=== PATIENT | female | born 1995 | race Caucasian/White ===

== ENCOUNTER 2022-10-29 15:04 | Emergency (ER) | payer OTHER, SELFPAY ==
[2022-10-29] VITALS (11 sets, daily range): BP systolic 101–114; BP diastolic 58–80; PULSE 61–94; RESP 16–38; TEMP 36.7–36.9; O2SAT 95–100
--- NOTE | ~2022-10-29 | US_ITS ---
EXAMINATION: US OB follow up DATE: 10/29/2022 18:55 INDICATION: Abdominal pain. Uncertain dates. TECHNIQUE: Real-time ultrasound of the pelvis was performed. COMPARISON: None. FINDINGS: There is a single living fetus in variable presentation. The placenta is fundal and posterior. heart rate is 150 beats per minute (bpm). The amniotic fluid volume is subjectively normal. The cerv ical length is 4.0 cm on transabdominal images, which is normal. The following biometric data were obtained: Biparietal diameter (BPD): 4.1 cm; head circumference (HC): 16.0 cm; abdominal circumference (AC): 12 .8 cm; femur length (FL): 2.8 cm. These measurements are concordant. Estimated weight is 243 g +/- 36 g. As single measurements, these parameters are each equal to the following estimated gestational ages: BPD: 18 weeks 4 days. HC: 18 weeks 6 days. AC: 18 weeks 3 days. FL: 18 weeks 4 days. estimated gestational age based solely on measurements from this exam is 18 weeks 4 days +/- 1 weeks 2 days. IMPRESSION: 1. Single living fetus in variable presentation. 2. Estimated date of delivery of 03/28/2023. Reviewed, dictated and finalized at location E.
[2022-10-29 18:00] LABS: Appearance Urine Turbid (Clear); Bacteria Urine 4+ /hpf; Bilirubin Urine 1+ (Negative); Blood Urine Trace (Negative); Color Urine Dark Yellow (Yellow); Glucose Urine UA Negative (Negative); Ketones Urine 3+ mg/dL (Negative); Leukocyte Esterase Ur 3+ LEU/UL (Negative); Need Manual Microscopic Reviewed; Nitrate Urine Positive (Negative); Non Pathogenic Casts >20; Protein Urine 2+ mg/dL (Negative); Specific Grav Ur 1.029 (1.001-1.035); Squamous Epithelial Cell Urine Many /hpf (Few); WBC Urine >100 /hpf
[2022-10-29 18:01] LABS: Add Urine Microscopic? YES
[2022-10-29 18:29] LABS: Basophils Percent Auto 0.2 % (0.2-1.2); Hematocrit 39.7 % (37.0-47.0); Hemoglobin 12.5 g/dL (12.0-15.0); Immature Granulocyte Absolute 0.03 K/mm3 (0.00-0.031); Immature Granulocyte Percent A 0.3 % (0-0.5); Immature Platelet Fraction Pct 6.4 % (0.9-11.2); Lymphocytes Absolute Auto 1.88 K/mm3 (0.9-3.2); Lymphocytes Percent Auto 21.4 % (18.3-44.2); Mean Corpuscular HGB Conc 31.5 g/dl (32-36); Mean Corpuscular Hemoglobin 29.6 pg (26-34); Mean Corpuscular Volume 93.9 fl (80-100); Monocytes Absolute Auto 0.5 K/mm3 (0.1-0.6); Monocytes Percent Auto 5.7 % (2.6-8.5); Neutrophils Absolute Auto 6.4 K/mm3 (1.3-6.7); Neutrophils Percent Auto 72.4 % (45.5-73.1); Red Blood Count 4.23 M/mm3 (4.2-5.4); Red Cell Distribution Width 14.2 % (11.5-14.5); White Blood Count 8.8 K/mm3 (4.5-10.0)
[2022-10-29 18:47] LABS: Platelet Estimate Adequate (Adequate)
[2022-10-29 18:48] LABS: Hypochromasia 1+ (NORMAL); Schistocytes None Seen (NORMAL)
--- NOTE | 2022-10-29 18:58 | ED.GENADULT ---
HPI - General Adult General Chief complaint: Unspecified Stated complaint: Detoxing from fentanyl. preg Time Seen by Provider: 10/29/22 18:40 Source: patient Limitations: no limitations History of Present Illness HPI narrative: 26 years old white female went to [facility] days last fentanyl use 5 days ago. Came to the emergency room with the police man who is telling me that patient did not eat or drink over the last 48 hours Patient tested positive for 2 days ago. Patient does not remember her last menstrual period. She denies any abdominal pain, fever, chills, vomiting, or nausea. Patient is telling me that she is in withdrawal from fentanyl right now, and also she is dehydrated. But does not have any specific symptoms. Patient is 4, para 1, 3 Related Data Allergies Allergy/AdvReac Type Severity Reaction Status Date / Time No Known Allergies Allergy Verified 10/29/22 15:50 Review of Systems Review of Systems: All systems reviewed & are unremarkable except as noted in HPI and below Exam Narrative: General appearance: Well-developed, well-nourished, poor hygiene, does not look in pain or distress laying comfortably in bed Skin: Normal color Head: Normocephalic, nontraumatic Eyes: Clear conjunctiva ENT: Oropharynx normal, ears normal, nose normal Neck: Supple, nontender Chest and respiratory: Airway patent, no respiratory distress, no accessory muscle use Heart: Regular rate/rhythm Abdomen: Soft, nontender, no organomegaly, quiet bowel sounds Vascular: Normal peripheral pulses, normal capillary refill. Musculoskeletal: Normal range of motion, nontender back Neurologic: Alert and oriented ?3, PIPELINE SYSTEMS OPERATOR is normal as tested, no gross motor deficit Course Reevaluation(s) Reevaluation #1: Feeling much better compared to on arrival to the emergency room after having IV fluid. Date: 10/29/22 Time: 21:09 Vital Signs Vital signs: Vital Signs Temperature 36.7 C 10/29/22 15:26 Pulse Rate 94 10/29/22 15:26 Respiratory Rate 16 10/29/22 15:26 Blood Pressure 112/80 10/29/22 15:26 Pulse Oximetry 100 10/29/22 15:26 Oxygen Delivery Room Air 10/29/22 15:26 Temperature 36.9 C 10/29/22 17:25 Pulse Rate 74 10/29/22 19:37 Respiratory Rate 28 H 10/29/22 19:37 Blood Pressure 101/58 L 10/29/22 19:37 Pulse Oximetry 100 10/29/22 19:37 Oxygen Delivery Room Air 10/29/22 15:26 Medical Decision Making MDM Narrative Medical decision making narrative: Patient came from the [facility], last fentanyl use 5 days ago, reporting that she have fentanyl withdrawal and dehydration. Patient reports not eating or drinking well over the last 48 hours. Found to be 2 days ago. Physical examination showed stable vital signs indicating no signs of dehydration or fentanyl withdrawal. Patient very comfortable laying down in bed not in any pain or distress. Differential diagnosis related symptoms, electrolyte imbalance, dehydration, depression secondary to getting caught and going to the [facility] 5 days ago. Work-up today include CBC, CMP, urine analysis, pelvic ultrasound, beta-hCG showed slight elevation of liver enzymes AST 94, ALT 110, beta-hCG 22,577 urine analysis came back positive for infection. Patient received 1 L of normal saline IV, 4 mg of Zofran IV, ceftriaxone 1 g IV for urinary tract infection. Pelvic ultrasound showed intrauterine over 18 weeks. Patient symptoms high likely is multifactorial secondary to depression, off fentanyl for the last 5 days, and . Patient is hemodynamically stable to go back to the [facility] on amoxicillin 875 mg twice daily for 10 days. Differential Di
[2022-10-29] MEDS: SODIUM CHLORIDE 0.9% IV 1,000 ML 999 ML IV CONT (19:44)
[2022-10-29] MEDS: ONDANSETRON INJ 4 MG/2 ML VIAL IV PUSH (19:44)
[2022-10-29 19:58] LABS: Alanine Aminotransferase 110 U/L (6-35); Albumin Level 4.1 g/dL (3.5-5.1); Alkaline Phosphatase 91 U/L (38-126); Anion Gap 11 mmol/L (8-16); Aspartate Amino Transferase 94 U/L (14-36); Bilirubin,Total 1.2 mg/dL (0.2-1.3); Blood Urea Nitrogen 11 mg/dL (7-17); Calcium 8.7 mg/dL (8.4-10.2); Carbon Dioxide 20 mmol/L (22-30); Chloride 103 mmol/L (98-107); Estimated CRCL calculation 130 ml/min; Estimated Glomerular Filt Rate > 60; Glucose 77 mg/dL (65-110); Lipase 38 U/L (23-300); Sodium 134 mmol/L (137-145)
[2022-10-29 20:17] LABS: Beta HCG Quantitative > 15000.00 mIU/ML
== END 2022-10-29 21:20 ==
PROVIDERS: Physician Assistant; Emergency Provider Emergency Medicine
DX: O23.42 Unspecified infection of urinary tract in pregnancy, second trimester (principal); N39.0 Urinary tract infection, site not specified; O99.342 Other mental disorders complicating pregnancy, second trimester; F32.A Depression, unspecified; Z3A.18 18 weeks gestation of pregnancy
CPT/HCPCS: 36415; 76816; 80053; 81001; 81025; 83690; 84702; 85025; 85055; 87086; 87147; 87181; 87186; 96365; 96375; 99284; J0696; J2405; J7030

== ENCOUNTER 2024-08-02 17:38 | Emergency (ER) | payer OTHER, MEDICAID, SELFPAY ==
--- OUTSIDE RECORDS SUMMARY | 2024-08-02 17:41 | XMS_ITS ---
Author Organization [facility] Address [address] [place] [address] Care Team Providers Care Occupational Therapy Specialist Name Role Phone Lynda Graham Primary Care Provider YonatanKait montes Unavailable [phone] Allergies No Known Allergies Results Component Value Reference Range Notes 12 Panel Urine Drug Screen Reviewed date:06/14/2024 05:17:47 PM Interpretation: Performing Lab: Notes/Report: THC neg PRICILLA neg MOP (OPI) neg AMP neg MET neg BAR neg BZO neg MDMA neg MTD neg OXY neg PCP neg BUP POS REASON FOR VISIT MAT F/U Medications Medication SIG (Take, Route, Fr equency, Duration) Notes Start Date End Date Status Suboxone 8-2 MG 1 film AM and 0.5 fi lm PM under the tongue and allow to dissolve Sublingual twice daily 06/02/2024 Active Naloxone HCl 4 MG/0.1ML as directed Nasally 2023 Active Social History Tobacco Use: Social History Observation Description Date Details (start date - stop date) Light tobacco s moker NA - NA Tobacco Control (Standard) Question Answer Notes Tobacco use: Light tobacco smoker Additional Findings: Tobacco user Moderate cigar ette smoker (10-19 cigs/day) Problems Problem Type SNOMED Code ICD Code Onset Dates Problem Status W/U Status Risk Notes Problem Overweight (208932325) Overweight (BMI 25.0-29.9) (E66.3) Active confirmed Problem Tobacco use (977009337) Tobacco use disorder (F17.200) Active confirmed Vital Signs Weight 137.5 lbs 06/02/2024 Height 61.75 in 06/02/2024 BMI 25.35 kg/m2 06/02/2024 Blood pressure systolic 100 mm Hg 06/02/19 25 Blood pressure diastolic 64 mm Hg 025 Heart Rate 78 /min 06/02/2024 Oximetry 99 % 06/02/2024 Temperature 98.0 degrees Fahrenheit 06/02/19 25 Respiratory Rate 16 /min 06/02/2024 Encounters Encounter Location Date Provider Diagnosis [facility] [address] [place] [address] 06/02/2024 Kait Durbin Opioid use disorder F11.99 ; Overweight (BMI 25.0-29.9) E66.3 and Tobacco use disorder F17.200 Assessments Encounter Date Diagnosis (ICD Code) Assessment Notes Treatment Notes Treatment Clinical Notes Section Notes 06/02/2024 Opioid use disorder (ICD-10 - F11.99) 06/02/2024 Overweight (BMI 25.0-29.9) (ICD-10 - E66.3) 06/02/2024 Tobacco use disorder (ICD-10 - F17.200) 06/02/2024 Other Discussed medication side effects, adverse effects, risks, benefits, as well as interactions. Encouraged non-use of opioids. Has naloxone. Recommended participation in recovery groups and/or counseling services. May contact office with questions or concerns. Plan Of Treatment Medication Medication Name Sig Start Date Stop Date Notes Suboxone 8-2 MG 1 film AM and 0.5 fi lm PM under the tongue and allow to dissolve Sublingual twice daily 06/02/2024 Treatment Notes Assessment Notes Other Discussed medication side effects, adverse effects, risks, benefits, as well as interactions. Encouraged non-use of opioids. Has naloxone. Recommended participation in recovery groups and/or counseling services. May contact office with questions or concerns. Next Appt Details Follow Up: 4 Weeks, Reason: MAR f/u Provider Name:Kait mills, 08/03/2024 11:40:00 AM, [address], [place], [address], Progress Notes * Tamara HURLEY DDOB: [birth year] (28 yo F)Acc No.[id number]:06/02/2024 Patient: Tamara BORJA Provider: Alena Durbin, MSN, TOY DEPARTMENT MANAGER, MEMBER OF TECHNICAL STAFF-C :1995 A ge:28 Y S ex:Female Date:06/02/2024 Address:[address] [place], [place] [id number] Pcp:Lynda Graham Check In:08:29 AM CHANGE MANAGEMENT CONSULTANT Subjective: * Chief Complaints: * M AT F/U * HPI: P reventative Health and Wellness follow-up: Action Plans for Clinical Quality Measures: A dult BMI and follow-up: O ther (see notes). BMI nutrition discussed C ervical Cancer Screening: D iscussed need for cervical cancer screening. Referred to [facility] for same day scheduling. T obacco Screening and Cessation: O ther (see notes). Tobacco Cessation reviewed . C SSRS Interpretation and Follow Up Plan: CSSRS Interpretation and Follow Up Plan C SSRS Screen documented using SF Y es R isk Disposition from SF L ow - No Follow Up Plan Required F ollow Up Plan N o Follow Up Plan required at this time. S creening: Jefferson Suicide Severity Rating Scale (LF) 1 . Wish to be : Have you wished you were or wished you could go to sleep and not wake up? N o 2 . Suicidal Thoughts: Have you actually had any thoughts of killing yourself? N o 6 . Suicide Behavior Question: Have you ever done anything,started to do anything, or prepared to end your life? N o I nterpretation: L ow Risk I nterim History: Emergency room visit N o. Was hospitalized N o. D epression Screening: PHQ-9 L ittle interest or pleasure in doing things?Not at all F eeling down, depressed, or hopeless N ot at all T rouble falling or staying asleep, or sleeping too much N ot at all F eeling tired or having little energy N ot at all P oor appetite or overeating N ot at all F eeling bad about yourself or that you are a failure, or have let yourself or your family down N ot at all T rouble concentrating on things, such as reading the newspaper or watching television N ot at all M oving or speaking so slowly that other people could have noticed; or the opposite, being so fidgety or restless that you have been moving around a lot more than usual N ot at all T houghts that you would be better off or of hurting yourself in some way N ot at all T otal Score 0 M AR follow-up: Tamara presents for MAR f/u for treatment of OUD. Last appointment on 03/21/2024, reports on most days only taking 1 film daily and had enough buprenorphine to make it until appointment today. No use of opioids or cravings. Medication Monitoring and Risk Mitigation U p-to-date on ASAM recommended lab testing??No P rescribed a buprenorphine product? Y es H as patient had a buprenorphine and metabolite lab ordered/collected? Y es (see notes for date of last metabolite testing) D ate of last buprenorphine and metabolite?03/21/2024 P rescription Drug Monitoring Program Review?Yes. No concerns at this time. P juan to address any concerns identified: N o concerns identified. Will continue treatment plan as is. Cravings, Setbacks, Substance use, and Stressors C ravings since last visit: N o. Patient denies cravings since last visit. S etbacks since last visit? N o, patient denies setbacks since last visit. M isuse of substances since last visit: N o, patient denies. S tressors N o, patient denies stressors at this time. Withdrawal and Intoxication Symptoms I ntoxication Symptoms: N o signs of intoxication are present during visit. W ithdrawal Symptoms: N o withdrawal signs are present during visit. Mental Health, Support System, and Social Determinants M ental Health Status S table. S upport Systems Include: P ersonal support system (see notes). C ourt System Involvement? N o H ousing Stability: S table and safe housing. 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 R eferrals needed: N o referrals needed at this time. Recommended Wellness and Prevention Follow-up R ecommended Wellness and Prevention reviewed:?Yes. No additional orders/actions needed at this time. Other concerns: O ther Concerns? N o. N arcan need N o. Patient already has Narcan. * ROS: B asic ROS: Denies C hills. D enies S weats. D enies C onstipation. D enies S uicidal Thoughts. * Medical History: * Surgical History: N o Surgical History documented. * Hospitalization/Major Diagno stic Procedure: N o Hospitalization History. * Family History: F ather: , diagnosed with Other specified conditions influencing health status. M other: . 1 brother(s) - healthy. 2 son(s) . . mother pass away of an overdose three years ago. * Social History: P rimary Social History: L iving Arrangement L iving Arrangement: H omeless I s this a supportive environment? 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 T obacco Use: T obacco Control (Standard) T obacco use: L ight tobacco smoker A dditional Findings: Tobacco user M oderate cigarette smoker (10-19 cigs/day) M iscellaneous: M ethod of learning P referred method of learning: D emonstration * Medications: T akingNaloxone HCl 4 MG/0.1ML Liquid as directed Nasally Suboxone 8-2 MG Film 1 film AM and 0.5 film PM under the tongue and allow to dissolve Sublingual twice daily Medication List reviewed and reconciled with the patientTaking Naloxone HCl 4 MG/0.1ML Liquid as directed Nasally Taking Suboxone 8-2 MG Film 1 film AM and 0.5 film PM under the tongue and allow to dissolve Sublingual twice daily Medication List reviewed and reconciled with the patient * Allergies: N .K.D.A.no[Allergies Verified] Objective: * Vitals: I nitials: LL, Wt:137.5, Ht: 61.75, BMI:25.35, BP:100/64, HR:78, Oxygen sat %:99, Temp:98.0, RR:16, LMP: 04/2024, Pain scale:0. * Examination: G eneral Examination: GENERAL APPEARANCE: i n no acute distress. PSYCH: s peech clear, alert, oriented x4, judgement and insight good, thought process logical, goal directed. Assessment: * Assessment: 1. O verweight (BMI 25.0-29.9) - E66.3 2 . O pioid use disorder - F11.99 (Primary) 3 . T obacco use disorder - F17.200 Plan: * Treatment: Value Reference Range T HC neg * C OC neg * M OP (OPI) neg * A MP neg * M ET neg * B AR neg * B ZO neg * M DMA neg * M TD neg * O XY neg * P CP neg * B UP POS * Rita Arguelles 06/02/2024 1 0:11:57 AM CHANGE MANAGEMENT CONSULTANT > Specimen collected per [facility] specificationsThis lab was reviewed by Rita Arguelles on 06/14/2024 at 17:17 PM CHANGE MANAGEMENT CONSULTANT 2.?Others? Notes: Discussed medication side effects, adverse effects, risks, benefits, as well as interactions. Encouraged non-use of opioids. Has naloxone. Recommended participation in recovery groups and/or counseling services. May contact office with questions or concerns.?? * Recommended Wellness and Pre vention Guidelines: * S tatus A lert L ast Done N ext Due A ction Taken N ONCOMPLIANT C ervical cancer screening - 0 06/02/2024 - * Procedure Codes: 3 008F BODY MASS INDEX [id number] MEDICAL NUTRITION, INDIV, [id number] BEHAV CHNG SMOKING 3-10 [id number] SELF-MGMT EDUC & TRAIN, 1 [id number] SPECIMEN HANDLING * Preventive Medicine: Counseling: C are goal follow-up plan: BMI management provided Y es Above Normal BMI Follow-up L ifestyle education regarding diet S MOKING: Patient counselled on the dangers of tobacco use and urged to quit. . * Follow Up: 4 Weeks (Reason: JUN f/u) * Care Plan Details* * GE MANAGEMENT CONSULTANT Sign off status: Completed true * Provider: Alena Durbin, MSN, TOY DEPARTMENT MANAGER, MEMBER OF TECHNICAL STAFF-C Date: 0 06/02/2024 Generated for Celeste giordano/Fallon/Loveitting on: 0 08/02/2024 05:41 PM CDT History and Physical Notes * HPI (History of Present Illness) Category Sub-Category Detail Notes Category Not es Interim History Was hospitalized No Emergency room visit No Depression Screening PHQ-9 Little inte rest or pleasure in doing things: Not at all Feeling down, depressed, or hopeless: No t at all Trouble falling or staying asleep, or sl eeping too much: Not at all Feeling tired or having little energy: N ot at all Poor appetite or overeating: Not at all Feeling bad about yourself o r that you are a failure, or have let yourself or your family down: Not at all Trouble concentrating on thi ngs, such as reading the newspaper or watching television: Not at all Moving or speaking so slowly that other people could have noticed; or the opposite, being so fidgety or restless that you have been moving around a lot more than usual: Not at all Thoughts that you would be b [place]go off or of hurting yourself in some way: Not at all Total Score: 0 Screening Jefferson Suicide Sev erity Rating Scale (LF) 1. Wish to be : Have you wished you were or wished you could go to sleep and not wake up?: No 2. Suicidal Thoughts: Have you actually had any thoughts of killing yourself?: No 6. Suicide Behavior Question: Have you ever done anything,started to do anything, or prepared to end your life?: No Interpretation:: Low Risk MAR follow-up Medication Monitorin g and Risk Mitigation Up-to-date on ASAM recommended lab testing?: No Prescribed a buprenorphine product?: Yes Has patient had a buprenorphine and metabolite lab ordered/collected?: Yes (see notes for date of last metabolite testing) Date of last buprenorphine and metabolite: 03/21/2024 Prescription Drug Monitoring Program Rev iew: Yes. No concerns at this time. Plan to address any concerns identified:: No concerns identified. Will continue treatment plan as is. Cravings, Setbacks, Substanc e use, and Stressors Cravings since last visit:: No. Patient denies cravings since last visit. Setbacks since last visit?: No, patient denies setbacks since last visit. Misuse of substances since last visit:: No, patient denies. Stressors: No, patient denies stressors at this time. Withdrawal and Intoxication Symptoms Int oxication Symptoms:: No signs of intoxication are present during visit. Withdrawal Symptoms:: No withdrawal sign s are present during visit. Mental Health, Support Syste m, and Social Determinants Mental Health Status: Stable. Support Systems Include:: Personal suppo rt system (see notes). Court System Involvement?: No Housing Stability:: Stable and safe hous ing. 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 Referrals needed:: No referrals needed a t this time. Recommended Wellness and Pre vention Follow-up Recommended Wellness and Prevention reviewed:: Yes. No additional orders/actions needed at this time. Other concerns: Other Concerns?: No. Narcan need: No. Patient already has Alfa can. Preventative Health and Wellness follow-up Action Plans for Clinical Quality Measures: Adult BMI and follow-up:: Other (see notes). BMI nutrition discussed . Cervical Cancer Screening:: Discussed need for cervical cancer screening. Referred to [facility] for same day scheduling. Tobacco Screening and Cessation:: Other (see notes). Tobacco Cessation reviewed CSSRS Interpretation and Follow Up Plan CSSRS Interpretation and Follow Up Plan CSSRS Screen documented using SF: Yes Risk Disposition from SF: Low - No Follo w Up Plan Required Follow Up Plan: No Follow Up Plan requir ed at this time. Examination Category Sub-Category Detail Notes Category Not es General Examination GENERAL APPEARANCE: in no acute di stress PSYCH: speech clear, alert, oriented x4, judgement and insight good, thought process logical, goal directed
--- OUTSIDE RECORDS SUMMARY | 2024-08-02 17:41 | XMS_ITS ---
Author Organization [facility] Address [address] [place] [address] Care Team Providers Care Remote Computer Terminal Operator Name Role Phone Lynda Graham Primary Care Provider [phone] Kait Durbin [phone] REASON FOR VISIT F/U From Lynda Encounters Encounter Location Date Provider Diagnosis [facility] [address] [place] [address] 05/24/2024 Kait Durbin Plan Of Treatment Next Appt Details Provider Name:Kait mills, 08/03/2024 11:40:00 AM, [address], [place], [address], Progress Notes * Tamara HURLEY DDOB: 6 (28 yo F)Acc No.[id number]:05/24/2024 UNLOCKED PROGRESS NOTE Patient: Radha MONTGOMERY Tamara Pham Provider: Alena Durbin, MSN, GANG RIDER, MANAGER STERILE PROCESSING-C :1995 A ge:28 Y S ex:Female Date:05/24/2024 Address:[address] [address] , [facility] Pcp:Lynda Graham Subjective: * Chief Complaints: * 1 . F/U From Lynda. * Medical History: Objective: * Vitals: Assessment: Plan: * Treatment: * Care Plan Details* * Electronic signature of Viktoriya Durbin APRN, [id number] on 08/02/2024 at 05:40 PM CDT Sign off status: Pending * Provider: Alena Durbin, MSN, GANG RIDER, MANAGER STERILE PROCESSING-C Date: 0 05/24/2024 Generated for Celeste giordano/Fallon/Martha on: 0 08/02/2024 05:40 PM CDT
--- OUTSIDE RECORDS SUMMARY | 2024-08-02 17:41 | XMS_ITS | Patient Health Record ---
Author Organization Formerly [facility], 1928–1983 Address [address] [place] [address] Care Team Providers Care Application Security Consultant Name Role Phone Lynda Graham Primary Care Provider [phone] Kait Durbin Unavailable [phone] Betsey Rosas Unavailable [phone] Sera Velarde Unavailable [phone] Allergies No Known Allergies Results Component Value Reference Range Notes 12 Panel Urine Drug Screen Reviewed date:06/14/2024 05:17:47 PM Interpretation: Performing Lab: Notes/Report: THC neg PRICILLA neg MOP (OPI) neg AMP neg MET neg BAR neg BZO neg MDMA neg MTD neg OXY neg PCP neg BUP POS 12 Panel Urine Drug Screen Reviewed date:03/22/2024 11:55:51 AM Interpretation: Performing Lab: Notes/Report: THC neg PRICILLA neg MOP (OPI) neg AMP neg MET neg BAR neg BZO neg MDMA neg MTD neg OXY neg PCP neg BUP POS Buprenorphine and Metabolite (Urine test) Reviewed date:03/28/2024 10:34:34 AM Interpretation: Performing Lab:[facility], [address] [employer], [facility], Phone - [phone], Director - PhDAbudu Notes/Report: Clinical Information:CCU:[id number] LM Buprenorphine Positive Confirmation p erformed by Mass Spectrometry Buprenorphine Positive Buprenorphine Conf, MS, UR 126 Cutoff=10 ng/m L Norbuprenorphine Positive [place]buprenorphine [place], UR 1224 Cutoff=10 n g/mL Test, Urine Reviewed date:02/08/2024 05:58:00 PM Interpretation: Performing Lab: Notes/Report: Test, Urine NEG Negative - Negative 12 Panel Urine Drug Screen Reviewed date:02/08/2024 05:58:08 PM Interpretation: Performing Lab: Notes/Report: THC neg PRICILLA neg MOP (OPI) neg AMP neg MET neg BAR neg BZO neg MDMA neg MTD neg OXY neg PCP neg BUP POS 12 Panel Urine Drug Screen Reviewed date:07/06/2024 09:10:14 AM Interpretation: Performing Lab: Notes/Report: THC neg PRICILLA neg MOP (OPI) neg AMP neg MET neg BAR negn BZO neg MDMA neg MTD neg OXY neg PCP neg BUP Positive 12 Panel Urine Drug Screen Reviewed date:02/22/2024 04:33:10 PM Interpretation: Performing Lab: Notes/Report: THC neg PRICILLA neg MOP (OPI) neg AMP neg MET neg BAR neg BZO neg MDMA neg MTD neg OXY neg PCP neg BUP POS 12 Panel Urine Drug Screen Reviewed date:02/16/2024 05:08:11 PM Interpretation: Performing Lab: Notes/Report: THC neg PRICILLA neg MOP (OPI) neg AMP neg MET neg BAR neg BZO neg MDMA neg MTD neg OXY neg PCP neg BUP POS Reason For Referral No Information Medications Medication SIG (Take, Route, Fr equency, Duration) Notes Start Date End Date Status Naloxone HCl 4 MG/0.1ML as directed Nasally 2023 Active Suboxone 8-2 MG 1 film AM and 0.5 fi lm PM under the tongue and allow to dissolve Sublingual twice daily 07/05/2024 Active Social History Tobacco Use: Social History Observation Description Date Details (start date - stop date) Current Smoker NA - NA PRAPARE Question Answer Notes Date Completed/Updated: 02/08/2024 What is your current housing situation? I do not have housing (staying with others, in a hotel, in a long-term, living outside on the street, on a beach, or in a park) [place] house-house of [place]arshal Are you worried about losing your housing? Yes What is the highest level of school that you have finished? 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 Check all that apply I choose not to answer this question Has lack of transportation k ept you from medical appointments, meetings, work or from getting things needed for daily living? No How often do you see or talk to people that you care about and feel close to? (For example: talking to friends on the phone, visiting friends or family, going to yazidism or club meetings) 3 to 5 times a week Aunt and brother primary support system How stressed are you? Stress is when someone feels tense, nervous, anxious, or can\t sleep at night because their mind is troubled Somewhat In the past year have you sp ent more than 2 nights in a row in a custodial, [place] health care facility, snf center, or juvenile correctional facility? Yes Do you feel physically and emotionally safe where you currently live? Yes In the past year, have you b een afraid of your partner or ex-partner? I choose not to answer this question Are you a refugee? No What country are you from? [facility] PRAPARE Score: 0 Tobacco Control (Standard) Question Answer Notes Tobacco use: Current smoker Problems Problem Type SNOMED Code ICD Code Onset Dates Problem Status W/U Status Risk Notes Problem Tobacco user (716793519) Nicotine dependence, unspecified, uncomplicated (F17.200) Active confirmed Problem Overweight (996855538) Overweight (BMI 25.0-29.9) (E66.3) Active confirmed Problem Tobacco use (184435398) Tobacco use disorder (F17.200) Active confirmed Problem Opioid use disorder (9371279155) Opioid use disorder (F11.99) Active confirmed Vital Signs Heart Rate 80 /min 07/05/2024 Temperature 98.0 degrees Fahrenheit 06/02/2024 Respiratory Rate 16 /min 07/05/2024 Blood pressure diastolic 60 mm Hg 07/05/2024 Oximetry 98 % 07/05/2024 Height 61.75 in 07/05/2024 Blood pressure systolic 100 mm Hg 07/05/2024 Weight 133 lbs 07/05/2024 BMI 24.52 kg/m2 07/05/2024 Encounters Encounter Location Date Provider Diagnosis [address] [address] 02/08/2024 Lynda Graham [address] [address] 02/08/2024 Lynda Tanwangco Opioid use disorder F11.99 and Nicotine dependence with current use F17.200 [facility] [address] [address] 02/08/2024 Sera Velarde [facility] [address] [address] 02/15/2024 Lynda Tanwangco Opioid use disorder F11.99 and Nicotine dependence with current use F17.200 [facility] [address] [address] 02/22/2024 Lynda Tanwangco Opioid use disorder F11.99 and Nicotine dependence with current use F17.200 [facility] [address] [address] 03/21/2024 Lynda Tanwangco Opioid use disorder F11.99 and Nicotine dependence with current use F17.200 [facility] [address] [place] [address] 06/02/2024 Jenia Heallen Opioid use disorder F11.99 ; Overweight (BMI 25.0-29.9) E66.3 and Tobacco use disorder F17.200 [facility] [address] [place] [address] 07/05/2024 Nakitaia Gifty Nicotine dependence, unspecified, uncomplicated F17.200 and Opioid use disorder F11.[address] [place] [address] 02/15/2024 Betsey Rosas Opioid use disorder F11.[address] [place] [address] 05/23/2024 Lynda Chaimngco Assessments Encounter Date Diagnosis (ICD Code) Assessment Notes Treatment Notes Treatment Clinical Notes Section Notes 07/05/2024 Nicotine dependence, unspecified, uncomplicated (ICD-10 - F17.200) 07/05/2024 Opioid use disorder (ICD-10 - F11.99) 03/21/2024 Opioid use disorder (ICD-10 - F11.99) 02/08/2024 Opioid use disorder (ICD-10 - F11.99) 02/08/2024 Nicotine dependence with current use (ICD-10 - F17.200) 06/02/2024 Overweight (BMI 25.0-29.9) (ICD-10 - E66.3) 02/15/2024 Opioid use disorder (ICD-10 - F11.99) 02/22/2024 Opioid use disorder (ICD-10 - F11.99) 06/02/2024 Opioid use disorder (ICD-10 - F11.99) 02/15/2024 Opioid use disorder (ICD-10 - F11.99) 02/15/2024 Nicotine dependence with current use (ICD-10 - F17.200) 02/22/2024 Nicotine dependence with current use (ICD-10 - F17.200) 06/02/2024 Tobacco use disorder (ICD-10 - F17.200) 03/21/2024 Nicotine dependence with current use (ICD-10 - F17.200) 02/08/2024 Other Patient agrees to take medication as prescribed. Discussed medication side effects, adverse effects, risks, benefits, as well as interactions. Encouraged non-use of opioids. Encouraged participation in recovery groups. Patient may contact office with questions or concerns. Patient is agreeable to above treatment plan and or changes and verbalized understanding. Continue all medication as prescribed. Provided informed consent with understanding of side effects, adverse effects, risks and benefits as well as alternative treatments as previously discussed with the above recommended medication and other aspects of the treatment programs. Discussed off label uses of medication. Agrees to return sooner if symptoms worsen Client verbalized understanding of information and is agreeable to plan of care. Questions addressed. Education given to patient-Understand that discontinuing buprenorphine increased the risk of overdose upon return to illicit opioid use. Know that the use of alcohol or benzodiazepines with buprenorphine increases the risk of overdose and . Understand the importance of informing providers if they become or plan to become . Tell the provider if they are having a procedure that may require pain medications. Education gave about safe and locked storage of medications to avoid theft or inadvertent use, especially by children. Encouraged locking devices and avoiding storage in parts of the home frequented by visitors. 02/08/2024 Other 02/15/2024 Other Patient agrees to take medication as prescribed. Discussed medication side effects, adverse effects, risks, benefits, as well as interactions. Encouraged non-use of opioids. Encouraged participation in recovery groups. Patient may contact office with questions or concerns. Patient is agreeable to above treatment plan and or changes and verbalized understanding. Continue all medication as prescribed. Provided informed consent with understanding of side effects, adverse effects, risks and benefits as well as alternative treatments as previously discussed with the above recommended medication and other aspects of the treatment programs. Discussed off label uses of medication. Agrees to return sooner if symptoms worsen Client verbalized understanding of information and is agreeable to plan of care. Questions addressed. Education given to patient-Understand that discontinuing buprenorphine increased the risk of overdose upon return to illicit opioid use. Know that the use of alcohol or benzodiazepines with buprenorphine increases the risk of overdose and . Understand the importance of informing providers if they become or plan to become . Tell the provider if they are having a procedure that may require pain medications. Education gave about safe and locked storage of medications to avoid theft or inadvertent use, especially by children. Encouraged locking devices and avoiding storage in parts of the home frequented by visitors. 02/22/2024 Other Patient agrees to take medication as prescribed. Discussed medication side effects, adverse effects, risks, benefits, as well as interactions. Encouraged non-use of opioids. Encouraged participation in recovery groups. Patient may contact office with questions or concerns. Patient is agreeable to above treatment plan and or changes and verbalized understanding. Continue all medication as prescribed. Provided informed consent with understanding of side effects, adverse effects, risks and benefits as well as alternative treatments as previously discussed with the above recommended medication and other aspects of the treatment programs. Discussed off label uses of medication. Agrees to return sooner if symptoms worsen Client verbalized understanding of information and is agreeable to plan of care. Questions addressed. Education given to patient-Understand that discontinuing buprenorphine increased the risk of overdose upon return to illicit opioid use. Know that the use of alcohol or benzodiazepines with buprenorphine increases the risk of overdose and . Understand the importance of informing providers if they become or plan to become . Tell the provider if they are having a procedure that may require pain medications. Education gave about safe and locked storage of medications to avoid theft or inadvertent use, especially by children. Encouraged locking devices and avoiding storage in parts of the home frequented by visitors. 03/21/2024 Other Patient agrees to take medication as prescribed. Discussed medication side effects, adverse effects, risks, benefits, as well as interactions. Encouraged non-use of opioids. Encouraged participation in recovery groups. Patient may contact office with questions or concerns. 06/02/2024 Other Discussed medication side effects, adverse effects, risks, benefits, as well as interactions. Encouraged non-use of opioids. Has naloxone. Recommended participation in recovery groups and/or counseling services. May contact office with questions or concerns. 07/05/2024 Other Discussed medication side effects, adverse effects, risks, benefits, as well as interactions. Encouraged non-use of opioids. Has naloxone. Recommended participation in recovery groups and/or counseling services. May contact office with questions or concerns. Patient may self-administe r their own medications or may self-administe r their own oral medications per [place] Protocol. Plan Of Treatment Next Appt Details Provider Name:Kait mills, 08/03/2024 11:40:00 AM, [address], [place], [address], Insurance Providers Payer Name Payer Address Payer Phone Subscriber Number Group Number Insured Name Patient Relationship to Insured Coverage Start Date Coverage End Date [facility] [address] [place] [address] [id number] Tamara Hurley Self - patient is the insured 4 MEDICAID [address] [place] [address] [id number] Tamara Hurley Self - patient is the insured 0 Medical (General) History Medical History History ICD Code hepatitis C Surgical History Surgery Date(Month/Year) Hospitalization History Reason Date(Month/Year)
--- OUTSIDE RECORDS SUMMARY | 2024-08-02 17:41 | XMS_ITS | Patient Health Record ---
Author Organization [facility] Planning Address [address] [address] Care Team Providers Care Media Center Assistant Name Role Phone Barbra Hernandes Unavailable [phone] Reason For Referral No Information Medications Medication SIG (Take, Route, Frequency, Duration) Notes Start Date End Date Status Venlafaxine HCl ER 75 MG Take 1 capsule Oral twice daily for 30 days ([facility]) 12/12/2013 Active Remeron 15 MG take 1 tablet by ora l route every day before bedtime Oral ([facility]) 12/12/2013 Active Problems Problem Type SNOMED Code ICD Code Onset Dates Problem Status W/U Status Risk Notes Problem Anxiety state (406589410) Anxiety state, unspecified (300.00) 4 Active confirmed ([facility]) Added By: Renetta March Problem Depressive disorder (95346945) Depressive disorder, not elsewhere classified (311) 4 Active confirmed ([facility]) Added By: Renetta March Plan Of Treatment No Information Insurance Providers Payer Name Payer Address Payer Phone Subscriber Number Group Number Insured Name Patient Relationship to Insured Coverage Start Date Coverage End Date Medicaid [employer] [address] [place], [place] [id number] Tamara Hurley Self - patient is the insured 5
--- OUTSIDE RECORDS SUMMARY | 2024-08-02 17:41 | XMS_ITS ---
Author Organization [facility] Address [address] [place] [address] Care Team Providers Care Campus Ambassador Name Role Phone Lynda Graham Primary Care Provider YonatanKait montes Unavailable [phone] Allergies No Known Allergies Results Component Value Reference Range Notes 12 Panel Urine Drug Screen Reviewed date:07/06/2024 09:10:14 AM Interpretation: Performing Lab: Notes/Report: THC neg PRICILLA neg MOP (OPI) neg AMP neg MET neg BAR negn BZO neg MDMA neg MTD neg OXY neg PCP neg BUP Positive REASON FOR VISIT MAT F/U Medications Medication [...] stop date) Current Smoker NA - NA Tobacco Control (Standard) Question Answer Notes Tobacco use: Current smoker Problems Problem Type SNOMED Code ICD Code Onset Dates Problem Status W/U Status Risk Notes Problem Tobacco user (136102029) Nicotine dependence, unspecified, uncomplicated (F17.200) Active confirmed Vital Signs Weight 133 lbs 07/05/2024 Height 61.75 in 07/05/2024 BMI 24.52 kg/m2 07/05/2024 Blood pressure systolic 100 mm Hg 07/06/19 25 Blood pressure diastolic 60 mm Hg 025 Heart Rate 80 /min 07/05/2024 Oximetry 98 % 07/05/2024 Respiratory Rate 16 /min 07/05/2024 Encounters Encounter Location Date Provider Diagnosis [facility] [address] [place] [address] 07/05/2024 Kait Durbin Nicotine dependence, unspecified, uncomplicated F17.200 and Opioid use disorder F11.99 Assessments Encounter Date Diagnosis (ICD Code) Assessment Notes Treatment Notes Treatment Clinical Notes Section Notes 07/05/2024 Nicotine dependence, unspecified, uncomplicated (ICD-10 - F17.200) 07/05/2024 Opioid use disorder (ICD-10 - F11.99) 07/05/2024 Other Discussed medication side effects, adverse effects, risks, benefits, as well as interactions. Encouraged non-use of opioids. Has naloxone. Recommended participation in recovery groups and/or counseling services. May contact office with questions or concerns. Patient may self-administe r their own medications or may self-administe r their own oral medications per [place] Protocol. Plan Of Treatment Medication Medication Name Sig Start Date Stop Date Notes Suboxone 8-2 MG 1 film AM and 0.5 fi lm PM under the tongue and allow to dissolve Sublingual twice daily 07/05/2024 Treatment Notes Assessment Notes Other Discussed medication side effects, adverse effects, risks, benefits, as well as interactions. Encouraged non-use of opioids. Has naloxone. Recommended participation in recovery groups and/or counseling services. May contact office with questions or concerns. 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 Wish to be : Have [...] N o I nterpretation: L ow Risk C SSRS Interpretation and Follow Up Plan: CSSRS Interpretation and Follow Up Plan C SSRS Screen documented using SF Y es R isk Disposition from L ow - No Follow Up Plan Required F ollow Up Plan N o Follow Up Plan required at this time. M AR follow-up: Tamara presents for JUN f/u. Continues taking buprenorphine as prescribed. Reports dose effective. No setbacks or cravings. Reports sleep unchanged. Working full-time 3rd shift. No current complaints or concerns. Medication Monitoring and Risk Mitigation U p-to-date [...] safe housing. 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 R eferrals needed: N o referrals needed [...] Thoughts. 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 T obacco Use: T obacco Control (Standard) T obacco use: C urrent smoker M iscellaneous: M ethod of learning P referred method of learning: D iscussion * Medications: T akingSuboxone 8-2 MG Film 1 film AM and 0.5 film PM under the tongue and allow to dissolve Sublingual twice daily Naloxone HCl 4 MG/0.1ML Liquid as directed Nasally Medication List reviewed and reconciled with the patientTaking Suboxone 8-2 MG Film 1 film AM and 0.5 film PM under the tongue and allow to dissolve Sublingual twice daily Taking Naloxone HCl 4 MG/0.1ML Liquid as directed Nasally Medication List reviewed and reconciled with the patient * Allergies: N .K.D.A.no[Allergies Verified] Objective: * Vitals: I nitials: st, Wt:133, Ht: 61.75, BMI:24.52, BP:100/60, HR:80, Oxygen sat %:98, RR:16, LMP: 06/2024, Pain scale:0. * Examination: G eneral Examination: GENERAL APPEARANCE: i n no acute distress. PSYCH: s peech clear, alert, oriented x4, judgement and insight good, thought process logical, goal directed. Assessment: * Assessment: 1. N icotine dependence, unspecified, uncomplicated - F17.200 2 . O pioid use disorder - F11.99 (Primary) Plan: * Treatment: Value Reference Range T HC neg * C OC neg * M OP (OPI) neg * A MP neg * M ET neg * B AR negn * B ZO neg * M DMA neg * M TD neg * O XY neg * P CP neg * B UP Positive 2.?Others? Notes:Discussed medication side effects, adverse effects, risks, benefits, as well as interactions. Encouraged non-use of opioids. Has naloxone. Recommended participation in recovery groups and/or counseling services. May contact office with questions or concerns.?? Clinical Notes: Patient may self-administer their own medications or may self- administer their own oral medications per [place] Protocol.?? * Procedure Codes: 9 9406 BEHAV CHNG SMOKING 3-10 [id number] SPECIMEN HANDLING * Preventive Medicine: Counseling: S MOKING: Patient counselled on the dangers of tobacco use and urged to quit. . * Follow Up: 4 Weeks (Reason: JUN f/u) * Care Plan Details* * Sign off status: Completed true * Provider: Alena Durbin, MSN, RENOVATION PLANT SUPERVISOR, DYNAMICS AX TECHNICAL ARCHITECT-C Date: 0 07/05/2024 Generated for Printi ng/Faxing/eTransmitting on: 0 08/02/2024 05:40 PM CDT History and Physical Notes * [...] Not at all Total Score: 0 Screening [place] Suicide Sev erity Rating Scale (LF) Do you want to initiate with: Screener form 1. Wish to be : Have you [...] and safe hous ing. 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 Referrals needed:: No referrals needed a t this time. Recommended Wellness and Pre vention Follow-up Recommended Wellness and Prevention reviewed:: Yes. No additional orders/actions needed at this time. Other concerns: Other Concerns?: No. Narcan need: No. Patient already has Alfa can. CSSRS Interpretation and Follow Up Plan CSSRS [...]
[2024-08-02 17:50] VITALS: BP 123/85; PULSE 77; RESP 16; TEMP 36.3; O2SAT 100
--- NOTE | 2024-08-02 18:22 | ED_ITS ---
HPI - Dental/Oral General Chief complaint: Dental/Oral Stated complaint: left side facial swelling-Dental issues Time Seen by Provider: 08/02/24 18:16 Source: patient Mode of arrival: ambulatory Limitations: no limitations History of Present Illness HPI Narrative: This is a 28-year-old female who presents to the ED for chief complaint of left lower dental pain ongoing for the past several days. States that the swelling to the left jaw has increased over the past day or so. States that she has taken 2 doses of Augmentin as prescribed by her dentist and is set to have the teeth with decay extracted in 2 days. She was concerned because of the increase in swelling despite taking the Augmentin doses. Denies fevers, chills, dysphagia, trismus, drooling. Related Data Allergies Allergy/AdvReac Type Severity Reaction Status Date / Time No Known Allergies Allergy Verified 08/02/24 18:38 Review of Systems Review of Systems: All systems as dictated in HPI Exam Narrative: GENERAL: Well-appearing, well-nourished, and in no acute distress. HEAD: Normocephalic, atraumatic. EYES: PERRLA and EOMI. ENT: Severe dental decay to the left lower premolars and molars. No appreciable abscess or focal fluctuance. No trismus or drooling. Nares clear, no rhinorrhea or epistaxis. Mucous membranes moist. Oropharynx without tonsillar hypertrophy exudate or other lesions. NECK: Supple. No adenopathy or masses. CHEST: No respiratory distress. Clear to auscultation. No wheezes rales or rhonchi HEART: Regular rate and rhythm. No murmur heard. Normal peripheral pulses. ABDOMEN: Soft, nontender, nondistended, normal active bowel sounds. MSK: Normal range of motion. No edema. SKIN: Warm, dry, no rash. NEURO: Alert and oriented x4. No focal deficits. PSYCH: Normal mood and affect. Course Vital Signs Vital signs: Vital Signs Temperature 97.3 F L 08/02/24 17:50 Pulse Rate 77 08/02/24 17:50 Respiratory Rate 16 08/02/24 17:50 Blood Pressure 123/85 08/02/24 17:50 Pulse Oximetry 100 08/02/24 17:50 Oxygen Delivery Room Air 08/02/24 17:50 Temperature 97.3 F L 08/02/24 17:50 Pulse Rate 77 08/02/24 17:50 Respiratory Rate 16 08/02/24 17:50 Blood Pressure 123/85 08/02/24 17:50 Pulse Oximetry 100 08/02/24 17:50 Oxygen Delivery Room Air 08/02/24 17:50 MDM - Dental/Oral MDM Narrative Medical decision making narrative: This is a 28-year-old female who presents to the ED for chief complaint of dental pain and swelling. Vitals are normal. Exam remarkable for the above. No evidence of deep space infection on exam today. She was mainly concerned because she had taken 2 doses of antibiotics with no relief of the swelling or pain. Reassured the patient that he will take 24-48 hours to start noticing positive affect with Augmentin. Is given Toradol IM here for pain control. Rx for short course of Toradol given for home. She has dental follow-up scheduled this week. Patient will be discharged in stable condition. Supportive measures discussed and return precautions given. Patient is understanding and agreeable with plan for discharge with dental follow-up. Discharge Plan Discharge Clinical Impression: Dental caries Patient Disposition: Home Condition: Stable Instructions: Antibiotic Form Additional Instructions: Your exam and for dental pain and swelling today. There is very likely an infection that is causing this swelling. Please continue to take antibiotics as prescribed and follow-up with dentist as scheduled. Take Toradol as needed for pain control. If you have any new or worsening symptoms please return to the ER for further evaluation. Patient Language: [place] Prescriptions: New ketorolac 10 mg tablet 10 mg PO Q8H PRN (Reason: pain) Qty: 15 0RF Rx Instructions: maximum total duration of 5 days from all oral, intranasal, or parenteral formulations No Action amoxicillin 875 mg tablet 875 mg PO Q12H Qty: 20 0RF Follow-up/Referrals: PHYSICIAN NOT ON STAFF,NONSTAFF [Non-Staff] - Stand Alone Forms: Work/School Release IP Time of Disposition: 18:32
[2024-08-02] MEDS: KETOROLAC 30 MG/ML VIAL (*BKC) IM (18:38)
== END 2024-08-02 18:54 | disposition home or self-care (01) ==
PROVIDERS: Emergency Provider Physician Assistant
DX: K02.9 Dental caries, unspecified (principal)
CPT/HCPCS: 96372; 99283; J1885